=== PATIENT | male | born 1970 | race African-American/Black ===

== ENCOUNTER 2018-05-23 10:01 | Emergency (ER) | payer MEDICAID, OTHER ==
[~2018-05-23] VITALS: Ht 182.9 cm; Wt 154.2 kg
[2018-05-23 11:07] VITALS: BP 123/84
[2018-05-23] MEDS ORDERED: KETOROLAC TROMETH 60MG/2ML VIAL IM ONE (12:00)
[2018-05-23 12:27] LABS: Basophils # (auto) 0.1 uL; Lymphocytes # (auto) 1.1 uL; Monocytes # (auto) 0.6 uL; Neutrophils # (auto) 5.9 uL
[2018-05-23 12:30] LABS: Basophils % (auto) 1.1 % (0.0-2.0); Eosinophils # (auto) 0.1 uL; Eosinophils % (auto) 1.9 % (0.0-7.0); Lymphocytes % (auto) 13.6 % (10.0-50.0); Mean Corpuscular Hemoglobin 28.2 pg (28.0-32.0); Mean Corpuscular Volume 88.1 fL (80.0-100.0); Monocytes % (auto) 7.9 % (0.0-12.0); Neutrophils % (auto) 75.5 % (37.0-80.0); Platelet Count (auto) 346 10^3/uL (140-450); Red Blood Cells 6.39 10^6/uL (4.5-5.90); Red Cell Distribution Width 18.1 % (11.8-14.3); White Blood Cell 7.8 10^3/uL (4.4-10.8)
[2018-05-23 12:54] LABS: Hematocrit 56.3 % (41.0-53.0)
[2018-05-23 13:10] LABS: Calcium 9.3 mg/dL (8.5-10.1); Potassium 3.5 mmol/L (3.5-5.1)
[2018-05-23 13:15] LABS: BUN/Creatinine Ratio 13.6; Bilirubin, Total 0.6 mg/dL (0.2-1.0); Uric Acid 10.8 mg/dL (3.5-7.2)
[2018-05-23 16:09] LABS: Albumin 2.5 g/dL (3.4-5.0)
== END 2018-05-23 13:35 | disposition home or self-care (01) ==
LOC: ER 10:01
DX: M10.9 Gout, unspecified (principal); E11.9 Type 2 diabetes mellitus without complications; I10 Essential (primary) hypertension
CPT/HCPCS: 36415; 73562; 80053; 84550; 85025; 96372; 99284; J1885